=== PATIENT | male | born 1975 | race Hispanic/Latino ===

== ENCOUNTER → 2017-03-15 | Outpatient (CLI) | payer OTHER ==
[~2017-03-15] MED LIST: ISOVUE-370 76% 100ML VIAL (Q9967) As Ordered ONE
--- NOTE | 2017-03-15 10:00 | REP ---
MAXILLOFACIAL CT WITH CONTRAST: HISTORY: Ear pain. CONTRAST: Isovue 370, 75 mL. Minimal mucosal thickening is present in the maxillary sinuses. The remaining sinuses are clear. Mucosal thickening involves the ostiomeatal units. The middle and inferior nasal turbinates are partially paradoxical. There is david bullosa of the middle nasal turbinates. There is mild deviation of the nasal septum to the left. A spur is present arising from the left side of the nasal septum. The spur abuts the left inferior nasal turbinate and uncinate process. The cribriform plate, medial carter of the orbits and optic canals are intact. There is aeration of the right anterior clinoid process. The carotid canals form a segment of the posterolateral carter of the sphenoid sinus. Contents of the orbits are normal. The nasal and oropharynx are normal in appearance. There is flattening and irregularity of the left mandibular condyle. The middle ear cavities and mastoid air cells are clear. IMPRESSION: 1. Sinus mucosal thickening as described above. 2. 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 Signed by Moises Rosales MD 03/15/2017 10:01 A
== END ==
LOC: M RAD 09:02
PROVIDERS: ATTEND Family Medicine
DX: J34.89 Other specified disorders of nose and nasal sinuses (principal); M26.69 Other specified disorders of temporomandibular joint
CPT/HCPCS: 70487; Q9967